=== PATIENT | male | born 1955 | race Caucasian/White ===

== ENCOUNTER 2019-11-30 10:04 | Emergency (ER) | payer MEDICARE, MEDICAID ==
[~2019-11-30] VITALS: Ht 182.9 cm; Wt 88.0 kg
[~2019-11-30 10:04] MED LIST: LEVO25TA7 PO
[2019-11-30] MEDS ORDERED: albuterol 2.5 MG/3 ML nebule NEB ONE (10:20)
[2019-11-30] MEDS ORDERED: predniSONE 20 mg tablet PO ONE (10:45)
[2019-11-30] MEDS ORDERED: ALBU8HFA PO (10:49)
[2019-11-30] MEDS ORDERED: AZIT-31 PO (10:49)
[2019-11-30] MEDS ORDERED: PRED20TA PO (10:49)
--- NOTE | 2019-11-30 11:03 | NUR ---
RT at bedside at this time.
[2019-11-30 11:12] VITALS: BP 160/94
== END 2019-11-30 11:13 | disposition home or self-care (01) ==
LOC: ER 10:05
DX: J44.1 Chronic obstructive pulmonary disease with (acute) exacerbation (principal); F17.200 Nicotine dependence, unspecified, uncomplicated; F12.90 Cannabis use, unspecified, uncomplicated; F15.90 Other stimulant use, unspecified, uncomplicated; Z90.49 Acquired absence of other specified parts of digestive tract; Z98.890 Other specified postprocedural states; Z91.018 Allergy to other foods; Z79.2 Long term (current) use of antibiotics; Z79.899 Other long term (current) drug therapy
CPT/HCPCS: 71045; 94640; 99283; J7512